=== PATIENT | female | born 1940 | race Caucasian/White ===

== ENCOUNTER 2021-07-21 22:46 | Inpatient (IN) | payer OTHER ==
[~2021-07-21] VITALS: Ht 165.1 cm; Wt 46.7 kg
[2021-07-21 22:53] VITALS: BP 89/48
[2021-07-21] MEDS ORDERED: FUROSEMIDE 20 M20 M1 PO (23:19)
[2021-07-21] MEDS ORDERED: BUSPIRONE HCL10 MG PO (23:19)
[2021-07-21] MEDS ORDERED: BYSTOLIC10 MG PO (23:19)
[2021-07-21] MEDS ORDERED: LEVOTHYROXINE125 MCG PO (23:19)
[2021-07-21] MEDS ORDERED: ESCITALOPRAM OXA5 MG PO (23:19)
[2021-07-21] MEDS ORDERED: LOSARTAN POTAS100 MG PO (23:20)
[2021-07-21] MEDS ORDERED: POTASSIUM CHLO10 MEQ PO (23:20)
[2021-07-21] MEDS ORDERED: HYDROCORTISONE30 G9 RECTAL (23:22)
[2021-07-21] MEDS ORDERED: TRAZODONE HCL50 MG PO (23:22)
[2021-07-21] MEDS ORDERED: ALPRAZOLAM 0.50.5 M1 PO (23:22)
[2021-07-21 23:27] LABS: HEMOGLOBIN 13.4 gm/dL (12.0-15.0); MCH 30.1 pg (26.0-34.0); MCHC 31.9 g/dL (28.0-37.0); MCV 94.3 fL (80.0-100.0); RBC 4.45 mil/uL (4.20-5.00); RDW 13.5 % (10.5-14.5); WBC 9.4 thou/uL (4.0-11.0)
[2021-07-21 23:55] LABS: CALCIUM 9.5 mg/dL (8.5-10.1); CREATININE 2.3 mg/dL (0.6-1.0); POTASSIUM 4.3 mmol/L (3.5-5.1)
[2021-07-22 00:01] LABS: ALBUMIN 3.5 g/dL (3.4-5.0); TOTAL BILIRUBIN 0.4 mg/dL (0.2-1.0); TOTAL PROTEIN 7.5 g/dL (6.4-8.2)
--- NOTE | 2021-07-22 00:33 | NUR ---
ATTMPETED TO CALL NE REGARDING OLD LABS ON PATIENT, SENT TO [facility]. ATTEMPTED @ [phone]
[2021-07-22 01:10] LABS: URINE BILIRUBIN 1+ (Negative); URINE BLOOD 2+ (Negative); URINE CLARITY TURBID; URINE COLOR YELLOW; URINE GLUCOSE-RANDOM* NEGATIVE (Negative); URINE KETONES TRACE (Negative); URINE NITRITE-REFLEX NEGATIVE (Negative); URINE PROTEIN (DIPSTICK) 2+ (Negative)
[2021-07-22 01:39] LABS: URINE LEUKOCYTES-REFLEX 3+ (Negative)
[2021-07-22 02:10] LABS: BACTERIA-REFLEX 1-9 Few /HPF (None Seen); CASTS None Seen /LPF (None Seen); CRYSTALS None Seen /LPF (None Seen); MUCUS 0-3 Light strn/LPF (None Seen); SQUAMOUS 4-10 Moderate /LPF (0-3); URINE WBC-REFLEX >25 Many /HPF (0-5); WBC CLUMPS Moderate (None Seen)
[2021-07-22 03:50] LABS: CALCIUM 8.3 mg/dL (8.5-10.1); POTASSIUM 4.5 mmol/L (3.5-5.1)
[2021-07-22 06:52] VITALS: BP 124/63
--- NOTE | 2021-07-22 07:10 | NUR ---
ATTEMPTED TO CALL REPORT TO 4W
[2021-07-22 07:18] VITALS: BP 124/63
[2021-07-22 08:05] VITALS: BP 124/68
[2021-07-22 16:07] VITALS: BP 123/66
--- NOTE | 2021-07-22 17:09 | NUR ---
pt arrived to floor from emergency room around 8am in stable condition. Admission hx,assessment and care plan completed with pt's dtr assistnace via phone.Dr Fofana and kristy rounded on pt.Order noted. Piv initiated. Pt has been sleeping since arriving to unit. Secret code given to dtr.Fall bundle in place. Will continue to monitor.
--- NOTE | 2021-07-23 03:39 | NUR ---
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
[2021-07-23 05:09] LABS: BASOPHILS 0.8 % (0.0-2.0); EOSINOPHILS 2.5 % (0.0-3.0); HEMATOCRIT 34.6 % (37.0-47.0); LYMPHOCYTES 19.3 % (24.0-44.0); MCHC 32.5 g/dL (28.0-37.0); MCV 95.2 fL (80.0-100.0); MONOCYTES 5.2 % (1.0-8.0); POLYS 72.2 % (36.0-66.0); RBC 3.64 mil/uL (4.20-5.00); RDW 13.5 % (10.5-14.5); WBC 6.9 thou/uL (4.0-11.0)
[2021-07-23 05:20] LABS: HEMOGLOBIN 11.3 gm/dL (12.0-15.0); PLATELET COUNT 237 thou/uL (150-400)
[2021-07-23 05:29] LABS: CALCIUM 8.5 mg/dL (8.5-10.1); MAGNESIUM 1.7 mg/dL (1.8-2.4); POTASSIUM 3.7 mmol/L (3.5-5.1)
[2021-07-23 05:31] LABS: CREATININE 0.8 mg/dL (0.6-1.0)
[2021-07-23 07:41] VITALS: BP 144/74
--- NOTE | 2021-07-23 08:29 | EKG ---
[place] [address] [facility] [place] [address] ELECTROCARDIOGRAM REPORT Name: VIDA TORRES Room #: 461-P ADM IN M.R.#: [id number] Admission: 07/22/21 Attend Phys: Yogi Fofana MD Discharge: Date of : 42 Report #: [id number] [facility] ED Test Date: 2021-07-21 Test Time: 23:50:52 Pat Name: VIDA TORRES Department: Room: [facility] Gender: F Branch Operation Evaluation Manager: araseli : 1940 Requested By: Kaden Bryant Order Number: [id number] MD: Ezequiel Mathew Measurements Intervals [place] Rate: 90 P: 70 IN: 146 QRS: -67 QRSD: 141 T: 97 QT: 405 QTc: 496 Interpretive Statements Sinus rhythm Ventricular premature complex Left bundle branch block No previous ECG available for comparison Electronically Signed On 07-23-2021 8:29:48 VIDEO GAME TECHNICIAN by Ezequiel Mathew [email or web address] <ELECTRONICALLY SIGNED> By: Ezequiel Mathew MD, [facility] 07/23/21 0829 [id number] [id number] Ezequiel Mathew MD, FACC /EPI
--- NOTE | 2021-07-23 15:18 | NUR ---
PT ADMITTED RELATED TO UTI, ROCIO, DEMENTIA WITH BEHAVIORAL DISTURBANCE. CM REVIEWED CHART AND SPOKE WITH CARE TEAM. CM MET WITH PT AT BEDSIDE THIS DAY. PT UNABLE TO PROVIDE ASSESSMENT INFO. PT KNEW HER NAME AND NAMES OF HER CHILDREN. CM CALLED AND SPOKE WITH HER DTR SARA. SHE INDICATED THAT PT RESIDES IN LTC AT [facility]. SHE INDICATED SHE HAD LIVES THERE FOR ABOUT 21/2 YEARS. DTR INDICATED THAT SHE NEEDED ASSIST WITH TRANSFERS TO AT [facility] AND SHE WASN'T SURE HER TRANSFER STATUS. DTR INDICATED THEY ANTICIAPTED PT GOING TO [facility] HERE AT [facility] BUT THAT SHE AND HER BROTHER UNDESTAND THAT PT HAD UTI UPON ADMISSION AND DEHYDRATION AND THAT CARE TEAM ARE HOPING THAT TREATMENT FOR THAT WILL RESOLVE BEHAVIOR ISSUES. DR. ROLON SAW PT AND SPOKE WITH SON DPOA AND NURSE AT [facility]. ROBBY SPOKE WITH MERT IN ADMISSIONS AT [facility] AND FAXED OVER CLINICAL INFO. CM FOLLOWING REGARDING DC PLANNING.
[2021-07-23 16:02] VITALS: BP 123/62
[2021-07-23 19:57] VITALS: BP 131/62
--- NOTE | 2021-07-24 03:56 | NUR ---
PATIENT AOX1 CONFUSED AND FORGETFUL. PATIENT CALM AND COOPERATIVE WITH MEDS AND CARE THIS SHIFT. PATIENT ASLEEP MOST OF THE TIME THIS SHIFT. PATIENT INCONTIENT PERICARE AND BARRIER CREAM APPLIED NEEDED.FALL PRECAUTION IN PLACE. PATIENT IN BED ASLEEP AT THIS TIME BREATHING REGULAR AND UNLABOURED.
[2021-07-24 07:30] VITALS: BP 140/63
--- NOTE | 2021-07-24 09:39 | HC ---
[facility] [place] [address] [place] [address] CONSULTATION Name: VIDA TORRES Room #: 461- ADM IN M.R.#: [id number] Admission: 07/22/21 Attend Phys: Yogi Fofana MD Discharge: Date of : 42 Report #: [id number] THIS REPORT FOR: cc: FAM - Family physician unknown FAM - Family physician unknown Braulio Ramirez DO ~ DATE OF SERVICE: 07/22/2021 INPATIENT PSYCHIATRIC CL CONSULTATION PRIMARY TEAM ATTENDING: Yogi Fofana MD CONSULTING PSYCHIATRIST: Braulio Ramirez DO REASON FOR CONSULTATION: Delirium, dementia, long-term care resident, subtle behavior at nursing facility. SOURCES OF INFORMATION: Interview with the patient, telephone conversations with her son, Luis Antonio, who was in [place], [place]. Chart review. HISTORY OF PRESENT ILLNESS: This is an 81-year-old female, seen on the [address] [place] [address] Unit at [facility]. The patient was seen in her room. She was supine, hooked up to intravenous fluid pump. The patient was oriented to self and situation, not day or time. She has responded to the basic command like sticking out her tongue. The patient could not tell me what had happened to her. She did acknowledge she resides at the [facility]. According to the son, Luis Antonio, the patient has been placed at [facility] for several years. She was in assisted living for that. She has had a 10-year history of dementia and 20 years ago, she sustained a significant stroke resulted in residual right-sided weakness. She states her a couple of months after stroke, so she has been in a 20-year magnitude. Information from the ER, she was brought in by ambulance last night. She was interestingly meowing and growling like a cat when I asked questions. The patient was given IV fluids in the ER. I believe she was given medication to improve her behavior in the ER. PAST MEDICAL HISTORY: Includes CVA, COVID in 10/2020, breast cancer, hypertension and hypothyroidism. PSYCHIATRIC HISTORY: Dementia, going back 10 years. HOME MEDICATIONS: Buspirone 10 mg oral 3 times a day, nebivolol 2 mg oral daily, escitalopram 5 mg oral daily, Lasix 20 mg oral daily, levothyroxine 125 mcg oral daily, losartan 100 mg p.o. daily, potassium chloride 10 mEq p.o. daily, trazodone 25 mg p.o. at bedtime, ____ 0.5 mg p.o. t.i.d. and hydrocortisone, rectal application for her most likely. [address] [address] CONSULTATION Name: VIDA TORRES Room #: [address] [place] [address] IN M.R.#: [id number] Admission: 07/22/21 Attend Phys: Yogi Fofana MD Discharge: Date of : 42 Report #: [id number] ALLERGIES: BANANA, LATEX. ALLERGY TO SULFADIAZINE. SOCIAL HISTORY: Long-term care facility. REVIEW OF SYSTEMS: Unable to be completed other than she denied being in pain. GENERAL: Weight 49.9 kilos. The patient is malnourished. BMI 17.1. LABORATORY DATA: Done in the ER, white count 9.4, H and H 13.4 and 42.0, platelet count 418. Chemistry, most recent which was sodium 144, potassium 4.5, chloride 109, bicarbonate 24, anion gap 11, BUN 32, creatinine 2.0, estimated GFR 24, glucose 92, lactic acid 1.3, calcium low at 8.3 notes delusional probably. She had calcium 9.5 prior. AST 26, ALT 18, alkaline phosphatase 104, total protein 7.5, albumin 3.5. TSH is low at 0.085. In any event, no neuro imaging or radiology was done. Her urine culture is still pending as we do not have a pathogen identification. Blood cultures x 2 are pending. Urinalysis showed 2+ protein, trace ketones, 2+ blood, 1+ bilirubin, 3+ leukocyte esterase, negative nitrites interestingly and had erythrocytes, leukocytes, epithelial cells, few bacteria and mucus. SARS-CoV-2 by PCR was not detected. CURRENT MEDICATIONS IN THE HOSPITAL: Pantoprazole 40 mg oral daily, trazodone 25 mg oral at bedtime, Rocephin 1 gram IV piggyback daily, hydralazine p.r.n. for hypertensive urgency. She is getting a liter every 10 hours of IV fluids at 100 mL per hour. She was given MiraLax b.i.d. She was given heparin 5000 units subcutaneous b.i.d. It looks like the last time she got Haldol and Ativan was in the ER. Most recent vital signs from 1607 on 12, pulse rate 80, respirations 18, BP 123/66, O2 sat 98% on room air. Her last temperature was in the morning, she was 37.3, so that is afebrile. PHYSICAL EXAMINATION: GENERAL: Ill, appearing, supine, on hospital bed. MENTAL STATUS EXAMINATION: This is a well-developed, ill-appearing female, appearing around stated age. Attention fair. Concentration limited. Speech somewhat slow, deliberate. Thought process, linear and goal directed. Thought content, relative poverty of thought. Denied suicidal or homicidal ideation, auditory or visual type hallucinations. Denied hopelessness, helplessness. I should say she did state she felt much improved from yesterday. Insight and judgment limited. Fund of knowledge, all below average. FORMULATION: An 81-year-old female admitted medically due to acute kidney injury, suspected UTI. The patient has a decades long history of a [facility] [address] [place] [address] CONSULTATION Name: VIDA TORRES Room #: 461-P [facility] IN .R.#: [id number] Admission: 07/22/21 Attend Phys: Yogi Fofana MD Discharge: Date of : 42 Report #: [id number] neurodegenerative disorder and has been disabled to magnitude 20 years. RECOMMENDATIONS: 1. Continue to treat general medical condition. According to son, acute kidney injury is definitely a new event and her baseline creatinine is well under 2, I would suspect. 2. The patient was on antidepressants, serotonin pathway anxiolytic. I do not see an emergent reason to restart that given her degree of kidney injury. 3. The son is the first DPOA, Luis Antonio is not in favor of rushing to put her on a mood stabilizer or antipsychotic regimen and I would agree with this. If her behavior resolves with the antibiotics and treatment of the urinary tract infection, kidney injury, dehydration, she would certainly need a psychiatric admission. I will follow along this patient with you. I did not enter any orders today. The son, Luis Antonio would like to be kept informed. Time spent on this case about 45 minutes a day. <ELECTRONICALLY SIGNED> By: Braulio Ramirez DO 07/24/21 0939 [id number] Braulio Ramirez DO /nt
--- NOTE | 2021-07-24 15:47 | NUR ---
CARE TEAM INDICATED THAT PT IS NEARING MEDICAL STABILITY FOR DISCHARGE BACK TO HER FACILITY [facility]. CARE TEAM LOOKING TO INCREASE ORAL INTAKE OR DISCUSS PALLIATIVE CARE WITH PT'S SON NANCY. CM SPOKE WITH [facility] AND THEY ARE ABLE TO ACCEPT PT BACK OVER WEEKEND IF MEDICALLY STABLE. CALL AP[facility]INAR AT . FAX ORDERS TO . TRANSPORT WILL NEED TO BE ARRANGED WITH [facility] CALL . PT WILL NEED CHART COPY.
--- NOTE | 2021-07-24 17:10 | NUR ---
Pt A & O to self. Pt VS stable. Pt received medications as ordered. Pt is room air. Pt is impulsive and was hallucinating this shift. Pt received PRN medications. Pt worked with PT/OT this shift.
[2021-07-25 01:21] VITALS: BP 153/65
--- NOTE | 2021-07-25 02:26 | NUR ---
assumed care approx 1899 evening 07/24. pt lying in bed confused yet cooperative. pt incontinent of urine requiring complete bed change. pt took hs meds crushed in applesauce tolerating well. pts IV infiltrated and now with new IV site in right forearm. pt appears to be sleeping at present. bed alarm on and call light in reach. will continue to monitor.
[2021-07-25 07:00] VITALS: BP 113/56
--- NOTE | 2021-07-25 12:21 | NUR ---
ASSUMED PT CARE THIS AM. PT ALERT, MAKES SOME NEEDS KNOWN. PATIENT IS A FEEDER. PATIENT REPORTING NO PAIN. PATIENT HAS CONTRACTURES NOTED TO THE LEFT HAND AND LEFT FOOT. IV REMIANS PATENT. IV FLUIDS INFUSING. PATIENT ON ROOM AIR. FALL PRECAUTIONS ARE IN PLACE, CALL LIGHT WITHIN REACH.
[2021-07-25 16:00] VITALS: BP 132/72
--- NOTE | 2021-07-26 05:49 | NUR ---
ASSUMED CARE OF PT AT 1900. PT ASSESSED TO BE AOX1 81F PRESENTING WITH UTI, ROCIO, AND DEMENTIA. PT WAS ABLE TO REST QUIETLY IN ROOM THROUGHOUT THE NIGHT WITH NO COMPLAINTS, VSS. EARLY IN EVENING PT WAS HESITANT ABOUT TAKING CRUSHED PILLS IN PUDDING BUT TOOK THEM AFTER OME PROMPTING. CHANGED WHOLE BED AND GOWN, CLEANED PT, PLACED PURWICK TO REDUCE SKIN IRRITATION, AND PROPPED UP ON PILLOWS. PT REMAINED STABLE ON ROOM AIR, FLUIDS INFUSING, VERBALIZES NO PAIN. PT IS BEDBOUND DUE TO PAST CVA WITH R SIDED CONTRACTION. RESTING IN ROOM NOW, WILL CONT TO MONITOR.
[2021-07-26 07:00] VITALS: BP 139/72
--- NOTE | 2021-07-26 11:34 | NUR ---
ASSUMED PT CARE THIS AM. PT A&OX1, FREQUENT CHECKS ON PATIENT. PATIENT INCONTINENT, CHANGING NECESSARY. EXTERNAL FEMALE CATHETER IN PLACE DRAINING YELLOW URINE. PATIENT ON ROOM AIR. PATIENT REQUIRES FEEDING FOR EMALS, REFUSED BREAKFAST WHEN ATTEMPTED MULTIPLE TIMES. PATIENT HAS CONTRACTURES NOTED TO THE RIGHT HAND AND FOOT. PATIENT REFUSED MEDICATION THIS AM. IV REMAINS PATENT, FLUIDS INFUSING. FALL PRECAUTIONS ARE IN PLACE, CALL LIGHT WITHIN REACH.
[2021-07-26 20:15] VITALS: BP 139/77
--- NOTE | 2021-07-26 23:07 | NUR ---
ASSUMED CARE OF PT AT 1915. PT IS ALERT & CONFUSED. DENIES PAIN. NO SIGN OF PAIN APPARENT. IS STABLE. IS RESTLESS. CONTINUES TO REMOVE GOWN & BED LINEN. A NEW IV WAS STARTED BY ANOTHER NURSE. PT DISCONTINUED LAST ONE. IS TURNED Q2H. CONTRACTURES NOTED IN RIGHT UPPER & LOWER EXTREMITIES. EDEMA ALSO NOTED. IS ON ROOM AIR. LABS & VITALS REVIEWED. PT REFUSED TO TAKE ORAL EVENING MEDS. THIS NURSE ATTEMPTED SEVERAL TIMES. PT IS CURRENTLY IN ROOM IN BED. TV ON. CALL LIGHT WITHIN REACH. FLUIDS INFUSING. WILL CONTINUE TO MONITOR. IS ACROSS FROM NURSE STATION.
[2021-07-27 08:14] VITALS: BP 142/68
[2021-07-27] MEDS ORDERED: MIRALAX17 GM PO (13:30)
[2021-07-27] MEDS ORDERED: CEFUROXIME250 MG PO (13:30)
[2021-07-27] MEDS ORDERED: ACETAMINOPHEN325 M1 PO (13:30)
--- NOTE | 2021-07-27 14:21 | NUR ---
ASSUMED PT CARE THIS AM. PT A&OX1. PATIENT DENIES PAIN. PATIENT HAS BEEN INCONTINENT THIS SHIFT, FEMALE EXTERNAL CATHETER IN PLACE. PATIENT IS ON ROOM AIR. PATIENT BEING FED MEALS. PATIENT TAKING MEDICATIONS CRUSHED WITHOUT ISSUE. IV REMAINS PATENT, FLUIDS INFUSING. FALL PRECAUTIONS ARE IN PLACE, CALL LIGHT WITHIN REACH. PATIENT WITH CONTRACTURES NOTED ON THE RIGHT FOOT AND RIGHT HAND.
--- NOTE | 2021-07-27 15:44 | NUR ---
PHYSICIAN HAD SPOKEN WITH PT'S SON/DPOA THIS DAY REGARDING GOALS OF CARE AND PT'S LACK OF ORAL INTAKE. IT HAD BEEN DETERMINED THAT PLAN WOULD BE FOR PT TO RETURN TO [facility] THIS DAY AND THAT PT'S FAMILY AND COMMUNITY WILL CONTINUE TO MONITOR AND IF INTAKE DOESN'T IMPROVE MAY LOOK AT IMPLEMENTING HOSPICE AT A LATER DATE. ROBBY SPOKE WITH MERT IN ADMISSIONS AT FACILITY AND SHE ARRANGED [facility] FOR 1630. CM CALLED AND LEFT FOR PT'S SON AND DTR. NURSE GIVEN NUMBER FOR REPORT. CHART COPY MADE. NO OTHER CM INTERVNETION INDICATED. CASE CLOSED.
== END 2021-07-27 17:17 | DRG 682 ==
LOC: ER 22:46 → EROBS 07-22 04:35 → 4W 07-22 04:35 → EROBS 07-22 04:36 → 4W 07-22 07:48
PROVIDERS: Emergency Medicine; Nurse Practitioner; ADMIT Hospitalist; ATTEND Hospitalist
DX: N17.0 Acute kidney failure with tubular necrosis (principal); G92.8 Other toxic encephalopathy; E43 Unspecified severe protein-calorie malnutrition; N39.0 Urinary tract infection, site not specified; F02.81 Dementia in other diseases classified elsewhere, unspecified severity, with behavioral disturbance; E87.2 Acidosis; F01.51 Vascular dementia, unspecified severity, with behavioral disturbance; Z68.1 Body mass index [BMI] 19.9 or less, adult; N18.9 Chronic kidney disease, unspecified; Z20.822 Contact with and (suspected) exposure to COVID-19; E03.9 Hypothyroidism, unspecified; F32.9 Major depressive disorder, single episode, unspecified; F41.9 Anxiety disorder, unspecified; R53.81 Other malaise; E83.42 Hypomagnesemia; M62.421 Contracture of muscle, right upper arm; I12.9 Hypertensive chronic kidney disease with stage 1 through stage 4 chronic kidney disease, or unspecified chronic kidney disease; E86.0 Dehydration; B96.4 Proteus (mirabilis) (morganii) as the cause of diseases classified elsewhere; F29 Unspecified psychosis not due to a substance or known physiological condition; Z86.73 Personal history of transient ischemic attack (TIA), and cerebral infarction without residual deficits; Z86.16 Personal history of COVID-19; Z85.3 Personal history of malignant neoplasm of breast; Z88.2 Allergy status to sulfonamides; Z88.8 Allergy status to other drugs, medicaments and biological substances; Z91.040 Latex allergy status; Z79.899 Other long term (current) drug therapy; Z23 Encounter for immunization
CPT/HCPCS: 10047